=== PATIENT | female | born 1945 | race Caucasian/White ===

== ENCOUNTER 2019-03-21 10:27 | Inpatient (IN) | payer SELFPAY ==
[~2019-03-21] VITALS: Ht 160 cm; Wt 83.0 kg
[2019-03-21 11:31] LABS: CHLORIDE 114 mEq/L (98-107); HEMATOCRIT. 38.8 % (36.0-48.0); HEMOGLOBIN. 12.3 g/dL (12.0-16.0); MEAN CORPUSCULAR HEMOGLOBIN 24.8 pg (28.0-32.0); MEAN PLATELET VOLUME 8.8 fl (7.4-10.4); PLATELET 94 x1000/uL (130-400); RED BLOOD CELL COUNT 4.98 mill/uL (4.2-5.4); RED CELL DISTRIBUTION WIDTH 19.2 % (11.6-14.6)
[2019-03-21 11:35] LABS: ETHANOL BLOOD < 10 mg/dL
[2019-03-21 11:38] LABS: CLARITY URINE CLEAR (CLEAR); COLOR URINE YELLOW (YELLOW); KETONES URINE NEGATIVE (NEGATIVE); LEUKOCYTE ESTERASE URINE NEGATIVE (NEGATIVE); NITRITE URINE NEGATIVE (NEGATIVE); OCCULT BLOOD URINE 1+ (NEGATIVE); PH URINE 5.5 (4.5-8.0); PROTEIN URINE NEGATIVE (NEGATIVE); SPECIFIC GRAVITY URINE 1.015 (1.005-1.030)
[2019-03-21] MEDS ORDERED: VANCOMYCIN 1 G PREMIX 200 ML IV SCH (12:00)
[2019-03-21] MEDS ORDERED: PIPERACILLIN/TAZOBACTAM 3.375GM/50ML PREMIX IV ONE (12:00)
[2019-03-21] MEDS ORDERED: SODIUM CHLORIDE 0.9% 500 ML IV ONE (12:00)
[2019-03-21 12:04] LABS: PLATELET ESTIMATE DECREASED
[2019-03-21 12:11] LABS: *AMPHETAMINES SCREEN URINE NEGATIVE (NEGATIVE); *BARBITURATES SCREEN URINE NEGATIVE (NEGATIVE)
[2019-03-21 12:12] LABS: *BENZODIAZEPINES SCREEN URINE NEGATIVE (NEGATIVE); *COCAINE SCREEN URINE NEGATIVE (NEGATIVE); METHADONE URINE SCREEN NEGATIVE (NEGATIVE); OPIATES URINE SCREEN NEGATIVE (NEGATIVE)
[2019-03-21 12:13] LABS: CANNABINOID URINE SCREEN NEGATIVE (NEGATIVE); PHENCYCLIDINE URINE SCREEN NEGATIVE (NEGATIVE)
[2019-03-21 13:53] LABS: INR 1.4; PARTIAL THROMBOPLASTIN TIME 33.4 sec (23.4-31.0)
[2019-03-21] MEDS ORDERED: LACTULOSE 20G/30ML UDC PO SCH (14:00)
[2019-03-21] MEDS ORDERED: ONDANSETRON HCL 4MG/2ML INJ IV PRN (14:00)
[2019-03-21] MEDS ORDERED: ACETAMINOPHEN 325MG TABLET PO PRN (14:00)
[2019-03-21 15:36] LABS: BG BASE EXCESS -5.2 mmol/L (-2.0-2.0); BG CARBOXYHEMOGLOBIN 0.7 % (0.5-1.5); BG DEOXYHEMOGLOBIN 4.1 % (0.0-5.0); BG FRACTION INSPIRED OXYGEN 21; BG HCO3 ACT 17.6 mmol/L (22.0-26.0); BG METHEMOGLOBIN 0.2 % (0.0-1.5); BG OXYGEN SATURATION 95.9 % (92.0-98.5); BG PCO2 26.5 mmHg (35.0-45.0); BG PH 7.439 (7.350-7.450); BG PO2 82.4 mmHg (75.0-100.0); BG SAMPLE SITE RIGHT RADIAL; BG TOTAL HEMOGLOBIN 12.3 g/dL (12.0-18.0); BG VENT MODE ROOM AIR
[2019-03-21 22:40] VITALS: BP 144/72
[2019-03-21 23:00] VITALS: BP 144/72
[2019-03-22 04:00] VITALS: BP 132/65
[2019-03-22] MEDS: LACTULOSE 20G/30ML UDC PO SCH ×3 (05:57→21:38)
[2019-03-22 06:38] LABS: BASOPHILS % 0.3 % (0.0-2.0); EOSINOPHILS % 1.9 % (0.0-5.0); HEMATOCRIT. 31.8 % (36.0-48.0); HEMOGLOBIN. 10.5 g/dL (12.0-16.0); LYMPHOCYTES % 11.9 % (20.0-50.0); MEAN CORPUSCULAR HEMOGLOBIN 25.3 pg (28.0-32.0); MEAN CORPUSCULAR VOLUME 76.4 fL (81.0-99.0); MEAN PLATELET VOLUME 8.6 fl (7.4-10.4); MONOCYTES % 12.6 % (2.0-8.0); NEUTROPHILS % 73.3 % (40.0-76.0); PLATELET 77 x1000/uL (130-400); RED BLOOD CELL COUNT 4.16 mill/uL (4.2-5.4); RED CELL DISTRIBUTION WIDTH 18.1 % (11.6-14.6)
[2019-03-22 06:45] LABS: CHLORIDE 120 mEq/L (98-107)
[2019-03-22 08:00] VITALS: BP 108/56
[2019-03-22] MEDS ORDERED: HEPARIN 5000 UNITS/ML VIAL SUBCUT SCH (09:00)
[2019-03-22 12:00] VITALS: BP 122/68
[2019-03-22] MEDS ORDERED: VANCOMYCIN 1,500 MG in DEXT 5% WATER 250 ML IV SCH (15:00)
[2019-03-22] MEDS: PIPERACILLIN/TAZOBACTAM 3.375 G in DEXT 5% WATER 100 ML IV SCH ×3 (15:52→23:29)
[2019-03-22 16:00] VITALS: BP 137/81
[2019-03-22 20:00] VITALS: BP 128/67
[2019-03-23] VITALS: BP 124/68
[2019-03-23 04:00] VITALS: BP 133/74
[2019-03-23] MEDS: LACTULOSE 20G/30ML UDC PO SCH (05:25)
[2019-03-23] MEDS: PIPERACILLIN/TAZOBACTAM 3.375 G in DEXT 5% WATER 100 ML IV SCH ×2 (05:25→11:53)
[2019-03-23 08:00] VITALS: BP 131/62
[2019-03-23 12:00] VITALS: BP 129/61
[2019-03-23] MEDS ORDERED: LACT10SO7 PO (12:43)
[2019-03-23] MEDS ORDERED: LACTULOSE 20G/30ML UDC PO SCH (13:00)
[2019-03-23 13:44] VITALS: BP 129/61
[2019-03-23] MEDS ORDERED: VANCOMYCIN 1 G PREMIX 200 ML IV SCH (18:00)
== END 2019-03-23 15:10 | disposition home or self-care (01) | DRG 425 ==
LOC: ER 10:27 → 6WST 13:45 → CANBEDREQ 17:23 → ENRESERV 20:40
PROVIDERS: ADMIT Internal Medicine; ATTEND Internal Medicine
DX: E87.5 Hyperkalemia (principal); I11.0 Hypertensive heart disease with heart failure; E72.20 Disorder of urea cycle metabolism, unspecified; I50.9 Heart failure, unspecified; K76.9 Liver disease, unspecified
CPT/HCPCS: 36415; 36600; 71045; 76705; 80305; 80307; 80320; 80329; 81003; 82140; 82375; 82805; 82962; 83605; 83735; 83880; 84443; 84484; 92610; 93005; 93306; 96365; 96367; 97162; 99291; A6261; J2543; J3370; J7040; J7060; G0480